=== PATIENT | female | born 1975 | race Caucasian/White ===

== ENCOUNTER 2025-05-03 17:02 | Emergency (ER) | payer BC ==
[2025-05-03 17:11] VITALS: BMI 28.3
[2025-05-03] MEDS ORDERED: FAMOTIDINE 20 MG/50 ML IVPB 20 MG/50 ML MG IVPB ONE (17:43)
[2025-05-03] MEDS ORDERED: ONDANSETRON 4 MG/2 ML VIAL ONE (17:43)
[2025-05-03] MEDS: ONDANSETRON 4 MG/2 ML VIAL IVPUSH ONE (18:05)
[2025-05-03] MEDS: SODIUM CHLORIDE 500 ML IV STA ×2 (18:05→18:38)
[2025-05-03] MEDS: FAMOTIDINE 20 MG/50 ML IVPB 20 MG/50 ML MG IVPB ONE (18:05)
[2025-05-03 18:13] LABS: ABSOLUTE IMMATURE GRANULOCYTES 0.01 x10^3/uL (0.0-0.031); BASOPHILS # 0.06 x10^3/uL (0.01-0.08); EOSINOPHIL % 1.6 % (0.7-5.8); EOSINOPHILS # 0.11 x10^3/uL (0.04-0.36); MCHC 33.3 g/dl (32.2-35.5); MEAN CELL VOLUME 88.8 fl (79.4-94.8); MEAN PLT VOLUME 9.5 fl (9.4-12.3); MONOCYTE # 0.42 x10^3/uL (0.24-0.86); MONOCYTE % 6.0 % (4.7-12.5); RDW 12.9 % (12.3-16.6)
[2025-05-03 19:04] LABS: GLUCOSE,RANDOM 91.0 mg/dL (74-106)
[2025-05-03 19:05] LABS: TOT PROT 7.9 g/dl (6.4-8.2)
[2025-05-03 19:06] LABS: CO2 26.0 mmol/L (21-32)
[2025-05-03 19:07] LABS: ALK PHOS 64.0 U/L (40-150)
[2025-05-03 19:34] LABS: HIV INTERPRETATION NEGATIVE (NEGATIVE)
[2025-05-03 19:35] LABS: HCV DIAGNOSTIC IN-HOUSE W/RFLX NON-REACTIVE (NONREACTIVE)
[2025-05-03 20:25] LABS: EPI CELLS 5 /uL (0-25.1); HYALINE CASTS 0 /uL (0-3.1); URINE APPEARANCE CLEAR; URINE BACTERIA 115 /uL (0-1359); URINE BILIRUBIN NEGATIVE (NEGATIVE); URINE COLOR YELLOW; URINE GLUCOSE (UA) NEGATIVE (NEGATIVE); URINE KETONE NEGATIVE (NEGATIVE); URINE LEUK ESTERASE 1+ (NEGATIVE); URINE NITRITE NEGATIVE (NEGATIVE); URINE PROTEIN NEGATIVE (NEGATIVE); URINE RBC 5 /uL (0-23.9); URINE UROBILINOGEN 0.2 mg/dL (0.2-1.0); URINE WBC 17 /uL (0-25.8)
[2025-05-03 21:45] VITALS: TEMP 97.7
[2025-05-03 22:39] LABS: CREATININE 0.7 mg/dL (0.55-1.3); SGOT/AST 23.0 U/L (5-34); SGPT/ALT 16.0 U/L (0-55)
[2025-05-03] MEDS ORDERED: CEFTRIAXONE 1 GM/50 ML BAG ONE (22:50)
[2025-05-03] MEDS: CEFTRIAXONE 1 GM in DEXTROSE 5%-WATER - 100 ML IVPB ONE (22:55)
[2025-05-04 00:22] VITALS: BP 115/71; PULSE 77; RESP 16
== END 2025-05-04 00:32 | disposition home or self-care (01) ==
LOC: JER 17:02
PROC: 3E033GC Introduction of Other Therapeutic Substance into Peripheral Vein, Percutaneous Approach (ICD-10-PCS; principal; 2025-05-03)
PROC: 3E03329 Introduction of Other Anti-infective into Peripheral Vein, Percutaneous Approach (ICD-10-PCS; 2025-05-03)
PROC: 3E033GC Introduction of Other Therapeutic Substance into Peripheral Vein, Percutaneous Approach (ICD-10-PCS; 2025-05-03)
DX: R11.2 Nausea with vomiting, unspecified (principal); R10.31 Right lower quadrant pain; N39.0 Urinary tract infection, site not specified
CPT/HCPCS: 36415; 80053; 81003; 83605; 83690; 84484; 84703; 85025; 86803; 87389; 93005; 93010; 99284-25